=== PATIENT | male | born 1995 | race Caucasian/White ===

== ENCOUNTER → 2017-10-23 | Outpatient (CLI) | payer OTHER ==
[~2017-10-23] VITALS: Ht 195.6 cm; Wt 90.7 kg
[~2017-10-23] MED LIST: CATHETER FLUSH 10 ML SYR IVP PRN; GADOBUTROL 7.5 MMOL/7.5 ML (GADAVIST) VIAL IV ONE; IOHEXOL 300 MG/ML 30 ML (OMNIPAQUE 300) VIAL IV ONE; LIDOCAINE 1% INJ 20 ML (XYLOCAINE) VIAL INJ ONE; LIDOCAINE 1% INJ 50 ML (XYLOCAINE) VIAL ONE
[2017-10-23 14:30] VITALS: BP 118/64
[2017-10-23 14:55] VITALS: BP 114/79
--- NOTE | 2017-10-23 15:32 | Diagnostic Imaging Report ---
INDICATION: Right elbow pain, injury throwing the javelin. FINDINGS: Patient brought to the procedure room and placed on the table in the prone position. Skin of the lateral right elbow was prepped and draped in the usual sterile fashion. A small amount of 1% lidocaine was utilized for local anesthesia. A 25 gauge needle was advanced and placed with its tip in the radiocapitellar joint. Approximately 10 mL solution of iodinated contrast, normal saline and gadolinium was injected under fluoroscopic observation. The needle was withdrawn, hemostasis was obtained. A total of 87 seconds of fluoroscopic time was utilized. IMPRESSION: Successful right elbow injection of gadolinium contrast solution, using fluoroscopy. Dictated by: Dictated on workstation # [id number]
--- NOTE | 2017-10-23 15:50 | Diagnostic Imaging Report ---
PATIENT HISTORY: Pain at the medial side of the right elbow. Injury throwing the javelin in track and field. Evaluate for UCL tear. TECHNIQUE: Multiplanar multisequence MRI examination of the right elbow was performed following fluoroscopically guided intra-articular injection of a gadolinium-based contrast mixture. COMPARISON: None. FINDINGS: The STIR images demonstrate poor signal, but no focal bone marrow edema is identified. No acute fracture is seen. Mild soft tissue edema is seen at the lateral aspect of the elbow, likely from recent injection. The joint is well distended with contrast. Alignment appears normal. Contrast extends between the sublime tubercle of the ulna and the ulnar collateral ligament, consistent with tear. The radial collateral ligament and the lateral ulnar collateral ligament appear intact. The distal biceps insertion is not completely included on the axial sequence. The triceps is unremarkable. Mild fluid about the common extensor tendon is thought to be due to recent injection rather than lateral epicondylitis. The common flexor tendon appears intact. The musculature about the elbow appears normal without atrophy. No soft tissue fluid collections are seen. The cubital tunnel appears normal and the ulnar nerve is unremarkable. IMPRESSION: 1. Tear of the ulnar collateral ligament in the right elbow, uplifted from the sublime tubercle. Dictated by: Dictated on workstation # [id number]
== END ==
LOC: EDBD → RAD 14:14
PROVIDERS: ATTEND Orthopaedic Surgery
DX: S53.441A Ulnar collateral ligament sprain of right elbow, initial encounter (principal); Y93.79 Activity, other specified sports and athletics
CPT/HCPCS: 24220; 73085; 73222